=== PATIENT | female | born 1985 ===

== ENCOUNTER 2016-10-17 10:08 | Inpatient (IN) ==
[2016-10-17] MEDS ORDERED: MEPERIDINE 50 MG/1 ML VIAL IV PRN (10:28)
[2016-10-17] MEDS ORDERED: ONDANSETRON 4 MG/2 ML VIAL IV PRN (10:28)
[2016-10-17] MEDS ORDERED: AMPICILLIN INJ 2,000 MG in SODIUM CHLORIDE 0.9% 100 ML IV ONE (10:47)
[2016-10-17 10:51] LABS: Basophils % 0.1 % (0.0-0.8); Eosinophils # 0.2 10*3/uL (0.0-0.87); Hemoglobin 11.4 GM/DL (12.0-16.0); Immature Granulocytes % 0.5 %; Immature Granulocytes Absolute 0.05 #; Lymphocytes # 2.5 10*3/uL (1.4-4.0); Lymphocytes % 25.8 % (21.3-54.2); Mean Corpuscular HGB Conc 32.6 GM/DL (32-36); Mean Corpuscular Hemoglobin 25 PG (27-34); Mean Corpuscular Volume 77.6 FL (87-102); Mean Platelet Volume 11.2 FL (9.6-12.0); Monocytes # 0.5 10*3/uL (0.11-0.8); Monocytes % 5.1 % (1.7-12.7); Neutrophils # 6.5 10*3/uL (1.4-7.4); Neutrophils % 66.5 % (38.7-73.9); Platelet Count 202 T/CUMM (130-400); Red Blood Count 4.51 MC/CUMM (3.8-5.5); Red Cell Distribution Width 15.1 % (9.3-17.3); White Blood Count 9.7 T/CUMM (4-12)
[2016-10-17] MEDS ORDERED: OXYTOCIN/LR 20 UNIT/1,000 ML BAG IV SCH (11:00)
[2016-10-17] MEDS: LACTATED RINGERS 1,000 ML IV SCH ×2 (11:03→17:11)
[2016-10-17 11:31] LABS: Alanine Aminotransferase 15 U/L (13-56); Albumin 2.9 G/DL (3.4-5.0); Alkaline Phosphatase 224 U/L (45-117); Aspartate Amino Transferase 16 U/L (0-37); Bilirubin,Total < 0.39 MG/DL (0.2-1.0); Blood Urea Nitrogen 12 MG/DL (7-18); Calcium 9.2 MG/DL (8.5-10.1); Glucose 67 MG/DL (74-106); Osmolality,Calculated 274.5 MOS/KG (273-304); Potassium 4.2 MMOL/L (3.5-5.1); Sodium 139 MMOL/L (136-145); Total Protein 6.9 G/DL (6.4-8.3); Uric Acid 4.3 MG/DL (2.6-6.0)
[2016-10-17] MEDS: AMPICILLIN INJ 1,000 MG in SODIUM CHLORIDE 0.9% 100 ML IV SCH ×3 (15:30→23:00)
[2016-10-17] MEDS ORDERED: DINOPROSTONE VAG GEL 10 MG SYRINGE VAG ONE (16:45)
--- NOTE | 2016-10-17 18:05 | OB/GYN History & Physical ---
History of Present Illness Chief complaint: In for elective induction of labor History of present illness: Ms. Baig is a 31 year old female who is a 5 para 4 living for. Her BRAD is 10/22/2016 for an estimated gestational age of 39 weeks. The patient presents to the labor department for elective induction of labor due to term . The risk and benefits been thoroughly discussed with this patient and significant other and plan of care has been discussed with Dr. Gutierrez and all parties are in agreement plan. The patient received her care through the [facility] and the [facility]. She received routine care and her course was uneventful. The patient has had 4 previous vaginal deliveries and she reported no complications with any of her pregnancies. Other than her first where she had preeclampsia. Her largest weighing 8 pounds and 12 ounces. The patient also has a history of gestational diabetes with this which was controlled. labs : She is a positive, serologies nonreactive, rubella is immune, hepatitis B negative, HIV negative, GBS cultures are positive, review of systems is negative with exception of above. Home Medications Medication Instructions Recorded Confirmed Type Albuterol Inhaler [Proventil 2 puff INH Q6H #1 inhaler 01/03/16 10/17/16 Rx Inhaler] Folic Acid Tab 1 tablet PO DAILY 10/17/16 10/17/16 History Allergies Allergy/AdvReac Type Severity Reaction Status Date / Time Cantaloupe Allergy Intermediate Swelling Verified 10/17/16 10:28 of Lip/Tongue/Throat Honeydew Allergy Intermediate Swelling Verified 10/17/16 10:28 of Lip/Tongue/Throat avocado Allergy Verified 08/27/16 14:16 banana AdvReac Verified 08/27/16 14:16 12 point system: reviewed and no additional remarkable complaints except as stated Medical,Surgical,& Family Hx - Medical History Endocrine: History of: Diabetes Mellitus (NIDDM) Respiratory: History of: Asthma Musculoskeletal: History of: Back/Neck Problems No history of: Amputation Reproductive: History of: Complication (preeclampsia) No history of: Ectopic - Surgical History Cardiac Surgeries: Patient Denies: Cardiac Catheterization Reproductive Surgeries: Patient denies;: Section - Family History Family History: Reports;: Family Cancer (GRANDFATHER), Family Diabetes, Family Hypertension Denies;: Family Heart Disease, Family Psychiatric Problems, Family Stroke - Social History Smoking Status: Never smoker Frequency of Alcohol Use: None Type of Drug Use: None Marital Status: Single Lives With:: Significant Other Functional capacity: independent ambulation Exam UNDERGRADUATE ADVISOR - Constitutional Vitals: Vital Signs Temp Pulse Resp BP Pulse Ox 10/17/16 16:00 97.4 F L 77 20 129/69 10/17/16 12:00 98.0 F 71 20 140/66 10/17/16 10:29 97.1 F L 81 20 135/82 98 General appearance: no acute distress - Antepartum / Post Antepartum Exam Cervix -Dilatation: 4 cm Effacement: 50% Station: -2 Rupture: intact Presentation: vtx Heart Rate: 140s Breast: bilateral: normal Abdomen obstetrics: Present: bowel sounds normal Vagina: Present: normal moisture Uterus exam: Present: enlarged - Head Head exam: Present: normal inspection - Respiratory Respiratory exam: Present: clear to auscultation bilaterally - Cardiovascular Cardiovascular exam: Present: regular rate and rhythm - GI/Abdominal GI/Abdominal exam: Present: normal bowel sounds - Extremities Exam Extremities exam: Present: normal inspection - Neurological Exam Neurological exam: Present: alert, oriented X3 - Psychiatric Psychiatric exam: Present: normal affect, normal mood - Skin Skin exam: Present: normal color, warm Assessment and Plan (1) Term Status: Acute Assessment and plan: Admit IV fluids IV Pitocin per protocol Artificial rupture membranes when appropriate Epidural anesthesia if desired Anticipate Current Visit: Yes (2) Gestational diabetes mellitus Status: Acute Current Visit: No Results - Labs CBC & BMP: 10/17/16 10:45 10/17/16 10:45
--- NOTE | 2016-10-17 18:10 | Event Note ---
The patient has not made any significant changes from this a.m. around 1130 at 12 when the Pitocin was started, therefore the decision to Place Prostin gel was made Dr. Gutierrez was consulted regarding this decision and all parties were in agreement plan. The patient did receive the Prostin she is still approximately 4 cm dilated and about 50% effaced. Will start IV Pitocin at 3 AM if no significant changes are made. The patient was counseled on epidural and measures for pain control.
[2016-10-17] MEDS ORDERED: PROMETHAZINE 25 MG/1 ML VIAL IM ONE (18:48)
[2016-10-17] MEDS ORDERED: CITRIC ACID/SODIUM CITRATE 30 ML UDCUP PO ONE (18:48)
[2016-10-17] MEDS ORDERED: fentaNYL 2 MCG/ROPIV 0.2% EPID 150 ML EPIDURAL SCH (18:48)
[2016-10-17] MEDS ORDERED: diphenhydrAMINE 50 MG/1 ML VIAL IV PRN ×2 (18:48)
[2016-10-17] MEDS ORDERED: ePHEDrine 50 MG/ML AMP IV PRN (18:48)
[2016-10-17] MEDS ORDERED: LACTATED RINGERS 1,000 ML IV ONE (18:48)
[2016-10-17] MEDS ORDERED: ONDANSETRON 4 MG/2 ML VIAL IV ONE (18:48)
[2016-10-17] MEDS ORDERED: hydrOXYzine HCL 25 MG/1 ML VIAL IM PRN (18:48)
[2016-10-17] MEDS ORDERED: FAMOTIDINE 20 MG/2 ML VIAL IV ONE (18:48)
[2016-10-17] MEDS ORDERED: ePHEDrine 50 MG/ML AMP ONE (19:17)
[2016-10-18] MEDS: LACTATED RINGERS 1,000 ML IV SCH (00:41)
[2016-10-18 00:50] LABS: Apearance,Urine CLEAR (Clear); Bilirubin,Urine Negative (Negative); Blood, Urine Negative (Negative); Glucose,Urine (UA) Negative (Negative); Ketones,Urine Negative (Negative); Mucus,Urine Occasional /LPF (Occasional); Nitrite,Urine Negative (Negative); Protein,Urine Negative; RBC,Urine <1 /HPF (0-4); Urine Color Yellow (Yellow); Urine Specific Gravity 1.016 (1.001-1.035); Urine Urobilinogen < 2.0 EU/DL (0.2-1.0); WBC,Urine <1 /HPF (0-6)
[2016-10-18] MEDS ORDERED: OXYTOCIN/LR 30 UNIT/1,000 ML BAG IV ONE (02:50)
[2016-10-18] MEDS: AMPICILLIN INJ 1,000 MG in SODIUM CHLORIDE 0.9% 100 ML IV SCH (02:51)
[2016-10-18] MEDS ORDERED: OXYTOCIN/LR 20 UNIT/1,000 ML BAG IV SCH (03:00)
[2016-10-18] MEDS ORDERED: miSOPROStol 200 MCG TABLET ONE (03:35)
[2016-10-18] MEDS ORDERED: METHYLERGONOVINE 0.2 MG/1 ML AMP ONE (03:35)
[2016-10-18] MEDS ORDERED: LIDOCAINE 1% 50 ML VIAL ONE (03:35)
[2016-10-18] MEDS: ACETAMINOPHEN/CODEINE 300-30 MG TABLET PO PRN (11:56)
[2016-10-18] MEDS: IBUPROFEN 800 MG TABLET PO PRN (11:56)
--- NOTE | 2016-10-18 15:38 | Anesthesia Post-Op ---
Anesthesia Post OP - Post Ansesthetic Evaluation Patient seen in post op: Yes Resp: within normal limits CV: within normal limits Mental: within normal limits Temp: within normal limits [id number]: within normal limits Nausea and Vomiting: within normal limits Pain: within normal limits
[2016-10-18] MEDS: DOCUSATE SODIUM 100 MG CAPSULE PO SCH (20:20)
[2016-10-19 05:57] LABS: Basophils % 0.2 % (0.0-0.8); Eosinophils # 0.3 10*3/uL (0.0-0.87); Eosinophils % 3.1 % (0.00-10.9); Hematocrit 28.2 VOL% (35.7-47.0); Immature Granulocytes % 0.6 %; Immature Granulocytes Absolute 0.05 #; Lymphocytes # 2.7 10*3/uL (1.4-4.0); Lymphocytes % 31.3 % (21.3-54.2); Mean Corpuscular HGB Conc 31.9 GM/DL (32-36); Mean Corpuscular Hemoglobin 25 PG (27-34); Mean Corpuscular Volume 77.5 FL (87-102); Mean Platelet Volume 12.2 FL (9.6-12.0); Monocytes # 0.5 10*3/uL (0.11-0.8); Monocytes % 5.7 % (1.7-12.7); Neutrophils # 5.1 10*3/uL (1.4-7.4); Neutrophils % 59.1 % (38.7-73.9); Platelet Count 162 T/CUMM (130-400); Red Blood Count 3.64 MC/CUMM (3.8-5.5); Red Cell Distribution Width 15.4 % (9.3-17.3); White Blood Count 8.7 T/CUMM (4-12)
--- NOTE | 2016-10-19 08:49 | Progress Note ---
Family Medicine PN Sub Interval history: Postop day #1 Status post vaginal Subjectively, patient is doing well no shortness of breath chest pain or excessive vaginal bleeding Uterus is firm and nontender Extremities well with no limits neurologic grossly intact Assessment and plan Possible discharge in a.m. Anemic will start this patient on iron therapy Follow-up in our office approximately 6 weeks. Exam (Progress Note) - Constitutional Vitals: Period Temp Pulse Resp BP Sys/Zamorano Pulse Ox Last 24 Hr 96.9 F-98.0 F 73-85 18-20 114-134/62-76 94-98 Results - Labs CBC & BMP: 10/19/16 05:46 10/17/16 10:45
[2016-10-19] MEDS: DOCUSATE SODIUM 100 MG CAPSULE PO SCH ×2 (09:30→20:05)
[2016-10-19] MEDS: MULTIVITAMIN (PRENATAL) TABLET PO SCH (09:30)
[2016-10-19] MEDS: IBUPROFEN 800 MG TABLET PO PRN (20:05)
[2016-10-19] MEDS: ACETAMINOPHEN/CODEINE 300-30 MG TABLET PO PRN (20:05)
[2016-10-20] MEDS ORDERED: FERROUS SULFATE 325 MG TABLET PO SCH (09:00)
[2016-10-20] MEDS: DOCUSATE SODIUM 100 MG CAPSULE PO SCH (09:30)
[2016-10-20] MEDS: MULTIVITAMIN (PRENATAL) TABLET PO SCH (09:30)
[2016-10-20] MEDS ORDERED: DIPH/TET/ACEL PERT BOOSTER VACCINE 0.5 ML VIAL IM ONE (12:05)
--- NOTE | 2016-10-20 12:07 | Discharge Summary ---
Hospital Course - Hospital Course Hospital Course: Ms. Baig presented to the labor department for elective induction of labor due to term . She subsequently delivered a viable infant with no complications. She has followed a normal course and she has done well. Her bleeding is minimal with no odor. Her fundus is firm and midline. She is bonding well with her . Her vital signs and lab values are stable. Her perineum is intact with no edema. She will be discharged home prescriptions for pain and follow-up appointment in our office. Diagnosis - Discharge Diagnosis (1) Term Status: Acute (2) Gestational diabetes mellitus Status: Acute Specialty Discharge - Follow Up or Referrals Follow up with: Louann Gutierrez MD [Physician] - 11/22/16 2:30 pm Discharge Plan - Discharge Data Disposition: Disch To Home/Self Care Condition at Discharge: Stable Discharge Diet: advance to your usual diet, regular diet Activity: resume usual activities as tolerated Hygiene: no restrictions, may shower Weight Bearing at Discharge: weight bear as tolerated Driving: no restrictions Contact your physician if you experience:: fever over 101, pain uncontrolled by pain medications - Discharge Medications New Ibuprofen Tab [Motrin Tab] 800 mg PO Q8H PRN #30 tablet PRN Reason: Pain Mild (1-3) And/Or Fever Acetamin/Codeine 300-30 Tab [Tylenol/Codeine #3] 2 tablet PO Q4H PRN #30 tablet PRN Reason: Pain Mild (1-3) Ferrous Sulfate Tab [Feosol Original Tab] 325 mg PO BID #60 tablet No Action Albuterol Inhaler [Proventil Inhaler] 2 puff INH Q6H #1 inhaler Folic Acid Tab 1 tablet PO DAILY - Follow Up or Referral Follow Up: Louann Gutierrez MD [Physician] - 11/22/16 2:30 pm - Forms/Instructions Instructions: Depression (GEN), Perineal Care (DC), Bleeding (DC) Exam - Constitutional Vitals: Period Temp Pulse Resp BP Sys/Zamorano Pulse Ox Last 24 Hr 97.0 F-97.8 F 74-82 16-20 107-139/61-72 95-98 General appearance: no acute distress - Head Head exam: Present: normal inspection - Respiratory Respiratory exam: Present: clear to auscultation bilaterally - Cardiovascular Cardiovascular exam: Present: regular rate and rhythm - GI/Abdominal GI/Abdominal exam: Present: normal bowel sounds, soft - Extremities Exam Extremities exam: Present: normal inspection - Neurological Exam Neurological exam: Present: alert, oriented X3 - Psychiatric Psychiatric exam: Present: normal affect, normal mood - Skin Skin exam: Present: normal color, warm DS: Provider Date of admission: 10/17/16 10:08 Primary care physician: Haris Lozano MD Attending physician on admission: Louann Gutierrez MD Consults: 10/17/16 10:28 Consult to Anesthesiology [CONS] Routine Consulting Provider: Reason for Anesthesiology: Epidural Consult Comment: Epidural for pain managment 10/19/16 08:00 Consult to Dietitian [CONS] Routine Reason for Dietitian: Dietary Consult Discharging clinician: Lissa Roberts CNM Expected date of discharge: 10/20/16
[2016-10-20 12:08] VITALS: BP 140/87
--- NOTE | 2016-11-18 22:43 | Operative Note ---
This patient was admitted on 10/17/16, subsequently amniotic membranes on 10/18/16. She delivered a viable with an epidural, 7 pounds and 1 ounce. Her labor progress was with an IV, with an epi dural, with IV Pitocin. Her monitor strip demonstrated category I. She had a normal labor cou rse for the first stage was 7 hours and 47 minutes, second stage was 25 minutes without any complicat ions. This patient's blood loss was less than 300 mL. She tolerated the delivery well. Brandon cri ed immediately and was taken to nursery in stable condition.
== END 2016-10-20 13:15 | disposition home or self-care (01) | DRG 560 ==
LOC: N.LD 10:08 → N.OB 10-18 08:54
PROVIDERS: ADMIT Obstetrics & Gynecology; ATTEND Obstetrics & Gynecology

== ENCOUNTER 2018-05-30 18:39 | Inpatient (IN) ==
[2018-05-30] MEDS ORDERED: LACTATED RINGERS 1,000 ML IV ONE (19:57)
[2018-05-30] MEDS ORDERED: ONDANSETRON 4 MG/2 ML VIAL IV ONE (19:58)
[2018-05-30] MEDS ORDERED: MEPERIDINE 50 MG/1 ML VIAL IV ONE (19:58)
[2018-05-30] MEDS: LACTATED RINGERS 1,000 ML IV SCH (21:21)
[2018-05-30 23:46] LABS: Apearance,Urine CLEAR (Clear); Bacteria,Urine Occasional /HPF (Few); Bilirubin,Urine Negative (Negative); Blood, Urine Small mg/dL (Negative); Glucose,Urine (UA) Negative (Negative); Ketones,Urine 20 mg/dL (Negative); Mucus,Urine Occasional /LPF (Occasional); Nitrite,Urine Negative (Negative); Protein,Urine Negative; RBC,Urine <1 /HPF (0-4); Squamous Epithelial Cell,Urine Occasional /HPF (0-10); Urine Color Yellow (Yellow); Urine Specific Gravity 1.021 (1.001-1.035); WBC,Urine 1 /HPF (0-6)
[2018-05-31] MEDS ORDERED: LACTATED RINGERS 500 ML IV PRN (07:26)
[2018-05-31] MEDS ORDERED: BUTORPHANOL 2 MG/ML VIAL IV PRN (07:26)
[2018-05-31] MEDS ORDERED: MEPERIDINE 50 MG/1 ML VIAL IV PRN (07:26)
[2018-05-31] MEDS ORDERED: OXYTOCIN/LR 20 UNIT/1,000 ML BAG IV SCH (07:30)
[2018-05-31 07:57] LABS: Basophils % 0.1 % (0.0-0.8); Eosinophils # 0.2 10*3/uL (0.0-0.87); Eosinophils % 1.9 % (0.00-10.9); Hematocrit 33.9 VOL% (35.7-47.0); Hemoglobin 10.7 GM/DL (12.0-16.0); Immature Granulocytes % 0.6 %; Immature Granulocytes Absolute 0.05 #; Lymphocytes # 1.9 10*3/uL (1.4-4.0); Lymphocytes % 20.6 % (21.3-54.2); Mean Corpuscular HGB Conc 31.6 GM/DL (32-36); Mean Corpuscular Hemoglobin 25 PG (27-34); Mean Corpuscular Volume 80.3 FL (87-102); Mean Platelet Volume 11.9 FL (9.6-12.0); Monocytes # 0.4 10*3/uL (0.11-0.8); Monocytes % 4.2 % (1.7-12.7); Neutrophils # 6.6 10*3/uL (1.4-7.4); Neutrophils % 72.6 % (38.7-73.9); Platelet Count 218 T/CUMM (130-400); Red Blood Count 4.22 MC/CUMM (3.8-5.5); Red Cell Distribution Width 15.7 % (9.3-17.3); White Blood Count 9.1 T/CUMM (4-12)
[2018-05-31] MEDS ORDERED: AMPICILLIN INJ 2,000 MG in SODIUM CHLORIDE 0.9% 100 ML IV ONE (08:01)
[2018-05-31] MEDS ORDERED: PROMETHAZINE 25 MG/1 ML VIAL IM ONE (08:28)
[2018-05-31] MEDS ORDERED: NALOXONE 0.4 MG/ML VIAL IV PRN (08:28)
[2018-05-31] MEDS ORDERED: ePHEDrine 50 MG/ML AMP IV PRN (08:28)
[2018-05-31] MEDS ORDERED: diphenhydrAMINE 50 MG/1 ML VIAL IV PRN (08:28)
[2018-05-31] MEDS ORDERED: CITRIC ACID/SODIUM CITRATE 30 ML UDCUP PO ONE (08:28)
[2018-05-31] MEDS ORDERED: FAMOTIDINE 20 MG/2 ML VIAL IV ONE (08:28)
[2018-05-31] MEDS ORDERED: hydrOXYzine HCL 25 MG/1 ML VIAL IM PRN (08:28)
[2018-05-31] MEDS ORDERED: fentaNYL 2 MCG/ROPIV 0.2% EPID 100 ML EPIDURAL SCH (08:30)
[2018-05-31 08:35] LABS: Albumin 2.3 G/DL (3.4-5.0); Bilirubin,Total 0.4 MG/DL (0.2-1.0); Calcium 9.2 MG/DL (8.5-10.1); Osmolality,Calculated 268.8 MOS/KG (273-304); Potassium 3.9 MMOL/L (3.5-5.1); Uric Acid 4.5 MG/DL (2.6-6.0)
[2018-05-31] MEDS: LACTATED RINGERS 1,000 ML IV SCH (10:09)
[2018-05-31] MEDS ORDERED: METHYLERGONOVINE 0.2 MG/1 ML AMP ONE (11:48)
[2018-05-31] MEDS ORDERED: TRANEXAMIC ACID 1,000 MG/10 ML VIAL ONE (11:48)
[2018-05-31] MEDS ORDERED: OXYTOCIN/LR 20 UNIT/1,000 ML BAG IV ONE ×2 (11:48→15:11)
[2018-05-31] MEDS ORDERED: miSOPROStol 200 MCG TABLET ONE (11:48)
[2018-05-31] MEDS ORDERED: CARBOPROST TROMETHAMINE 250 MCG/ML AMP IM ONE (11:48)
[2018-05-31 12:38] LABS: Cord Venous Blood HCO3 22.4 MMOL/L; Cord Venous Blood PCO2 40.9 MMHG; Cord Venous Blood PO2 38.4
[2018-05-31] MEDS ORDERED: ACETAMINOPHEN 325 MG TABLET PO PRN (15:02)
[2018-05-31] MEDS ORDERED: HYDROCORTISONE 2.5% RECTAL CREAM 30 GM TUBE TOP PRN (15:02)
[2018-05-31] MEDS ORDERED: LANOLIN 50% CREAM 0.3 OZ TUBE TOP PRN (15:02)
[2018-05-31] MEDS ORDERED: ACETAMINOPHEN/CODEINE 300-30 MG TABLET PO PRN (15:02)
[2018-05-31] MEDS ORDERED: WITCH HAZEL PADS 100/JAR TOP PRN (15:02)
[2018-05-31] MEDS ORDERED: BENZOCAINE 20%/MENTHOL 0.5% SPRAY 56 GM CAN TOP PRN (15:02)
[2018-05-31] MEDS ORDERED: oxyCODONE/ACETAMINOPHEN 5-325 MG TABLET PO PRN ×2 (15:02)
[2018-05-31] MEDS ORDERED: BISACODYL 10 MG SUPP RECTAL PRN (15:02)
[2018-05-31] MEDS ORDERED: DIPH/TET/ACEL PERT BOOSTER VACCINE 0.5 ML VIAL IM ONE (15:30)
[2018-05-31] MEDS ORDERED: RHO(D) IMMUNE GLOBULIN 300 MCG SYRINGE IM ONE (15:30)
[2018-05-31] MEDS ORDERED: MEASLES/MUMPS/RUBELLA VACCINE 0.5 ML VIAL SUBCUT ONE (15:30)
[2018-05-31] MEDS: DOCUSATE SODIUM 100 MG CAPSULE PO SCH (20:25)
[2018-06-01] MEDS: IBUPROFEN 800 MG TABLET PO PRN (01:45)
[2018-06-01 04:08] LABS: Basophils % 0.2 % (0.0-0.8); Eosinophils # 0.2 10*3/uL (0.0-0.87); Eosinophils % 2.6 % (0.00-10.9); Hematocrit 29.4 VOL% (35.7-47.0); Hemoglobin 9.2 GM/DL (12.0-16.0); Immature Granulocytes % 0.5 %; Immature Granulocytes Absolute 0.05 #; Lymphocytes # 2.6 10*3/uL (1.4-4.0); Lymphocytes % 28.5 % (21.3-54.2); Mean Corpuscular HGB Conc 31.3 GM/DL (32-36); Mean Corpuscular Hemoglobin 25 PG (27-34); Mean Corpuscular Volume 80.1 FL (87-102); Mean Platelet Volume 11.9 FL (9.6-12.0); Monocytes # 0.5 10*3/uL (0.11-0.8); Monocytes % 5.7 % (1.7-12.7); Neutrophils # 5.8 10*3/uL (1.4-7.4); Neutrophils % 62.5 % (38.7-73.9); Platelet Count 207 T/CUMM (130-400); Red Blood Count 3.67 MC/CUMM (3.8-5.5); Red Cell Distribution Width 15.5 % (9.3-17.3); White Blood Count 9.2 T/CUMM (4-12)
[2018-06-01] MEDS: DOCUSATE SODIUM 100 MG CAPSULE PO SCH ×2 (09:30→21:02)
[2018-06-01] MEDS: FERROUS SULFATE 325 MG TABLET PO SCH ×2 (09:30→21:02)
[2018-06-02] MEDS: IBUPROFEN 800 MG TABLET PO PRN (03:15)
[2018-06-02] MEDS: FERROUS SULFATE 325 MG TABLET PO SCH (09:26)
[2018-06-02] MEDS: DOCUSATE SODIUM 100 MG CAPSULE PO SCH (09:26)
[2018-06-02 11:59] VITALS: BP 131/83
[2018-06-02] MEDS ORDERED: INFLUENZA VIRUS VACCINE 0.5 ML SYRINGE IM ONE (13:12)
== END 2018-06-02 14:20 | disposition home or self-care (01) | DRG 560 ==
LOC: N.LAB 18:39 → N.LD 18:40 → N.OB 05-31 14:55
PROVIDERS: ADMIT Obstetrics & Gynecology; ATTEND Obstetrics & Gynecology

== ENCOUNTER 2019-03-15 23:04 | Inpatient (IN) ==
[2019-03-15] MEDS ORDERED: HYDROmorphone 2 MG/1 ML VIAL IV STA (23:11)
[2019-03-15] MEDS ORDERED: ONDANSETRON 4 MG/2 ML VIAL IV STA (23:11)
[2019-03-15] MEDS ORDERED: KETOROLAC 30 MG/1 ML VIAL IV STA (23:13)
[2019-03-16] MEDS ORDERED: ACETAMINOPHEN 325 MG TABLET PO PRN (00:23)
[2019-03-16] MEDS ORDERED: HYDROmorphone 2 MG/1 ML VIAL IV PRN (00:23)
[2019-03-16] MEDS ORDERED: PROMETHAZINE 25 MG/1 ML VIAL IM PRN (00:23)
[2019-03-16] MEDS ORDERED: ONDANSETRON 4 MG/2 ML VIAL IV PRN (00:23)
[2019-03-16] MEDS: LACTATED RINGERS 1,000 ML IV SCH ×2 (01:00→10:03)
[2019-03-16] MEDS: KETOROLAC 30 MG/1 ML VIAL IV SCH ×5 (01:30→23:58)
[2019-03-16 05:49] LABS: Basophils % 0.3 % (0.0-0.8); Eosinophils # 0.4 10*3/uL (0.0-0.87); Eosinophils % 5.6 % (0.00-10.9); Hemoglobin 13.4 GM/DL (12.0-16.0); Immature Granulocytes % 0.3 %; Immature Granulocytes Absolute 0.02 #; Lymphocytes # 2.7 10*3/uL (1.4-4.0); Lymphocytes % 33.8 % (21.3-54.2); Mean Corpuscular HGB Conc 31.9 GM/DL (32-36); Mean Corpuscular Volume 84.5 FL (87-102); Mean Platelet Volume 10.1 FL (9.6-12.0); Monocytes % 5.6 % (1.7-12.7); Neutrophils % 54.4 % (38.7-73.9); Platelet Count 237 T/CUMM (130-400); Red Blood Count 4.97 MC/CUMM (3.8-5.5); Red Cell Distribution Width 14.6 % (9.3-17.3); White Blood Count 7.9 T/CUMM (4-12)
[2019-03-16 06:04] LABS: Calcium 9.2 MG/DL (8.5-10.1)
[2019-03-16] MEDS: PANTOPRAZOLE 40 MG TABLET PO SCH (08:04)
[2019-03-16] MEDS: MOMETASONE/FORMOTEROL 100-5 INHALER 8.8 GM INH SCH ×2 (10:04→20:31)
[2019-03-16] MEDS: ENOXAPARIN 40 MG/0.4 ML SYRINGE SUBCUT SCH (18:07)
[2019-03-17] MEDS: LACTATED RINGERS 1,000 ML IV SCH ×5 (01:35→17:31)
[2019-03-17] MEDS: KETOROLAC 30 MG/1 ML VIAL IV SCH ×4 (06:07→23:52)
[2019-03-17] MEDS: MOMETASONE/FORMOTEROL 100-5 INHALER 8.8 GM INH SCH ×2 (08:44→21:40)
[2019-03-17] MEDS: PANTOPRAZOLE 40 MG TABLET PO SCH (08:44)
[2019-03-17] MEDS: ENOXAPARIN 40 MG/0.4 ML SYRINGE SUBCUT SCH (17:06)
[2019-03-18] MEDS: LACTATED RINGERS 1,000 ML IV SCH ×2 (01:38→13:07)
[2019-03-18] MEDS ORDERED: TISSUE ADHESIVE 1 EACH APPLICATOR TOP ONE (06:04)
[2019-03-18] MEDS ORDERED: LIDOCAINE 1%/EPI INJ 20 ML VIAL ONE (06:04)
[2019-03-18] MEDS ORDERED: BUPIVACAINE MPF 0.25% 30 ML VIAL ONE (06:04)
[2019-03-18] MEDS: KETOROLAC 30 MG/1 ML VIAL IV SCH ×2 (06:32→13:06)
[2019-03-18] MEDS ORDERED: ALBUTEROL/IPRATROPIUM 3 ML NEB RESP TX ONE (06:48)
[2019-03-18] MEDS ORDERED: ceFAZolin 2,000 MG in PREMIX 1 EACH IV ONE (07:00)
[2019-03-18] MEDS ORDERED: fentaNYL 100 MCG/2 ML VIAL ONE (09:41)
[2019-03-18] MEDS ORDERED: PROPOFOL 200 MG/20 ML VIAL IV ONE (09:41)
[2019-03-18] MEDS ORDERED: SEVOFLURANE 1 UNIT/15 MINUTE INH ONE (09:41)
[2019-03-18] MEDS ORDERED: LIDOCAINE 2% 5 ML VIAL ONE (09:41)
[2019-03-18] MEDS ORDERED: GLYCOPYRROLATE 0.4 MG/2 ML VIAL ONE (09:42)
[2019-03-18] MEDS ORDERED: ROCURONIUM 100 MG/10 ML VIAL IV ONE (09:42)
[2019-03-18] MEDS ORDERED: ONDANSETRON 4 MG/2 ML VIAL ONE (09:42)
[2019-03-18] MEDS ORDERED: LACTATED RINGERS 1,000 ML IV ONE (09:42)
[2019-03-18] MEDS ORDERED: DEXAMETHASONE 4 MG/1 ML VIAL ONE (09:42)
[2019-03-18] MEDS ORDERED: SUCCINYLCHOLINE 200 MG/10 ML VIAL ONE (09:42)
[2019-03-18] MEDS ORDERED: ACETAMINOPHEN 1,000 MG/100 ML VIAL IV ONE (09:42)
[2019-03-18] MEDS ORDERED: MIDAZOLAM 2 MG/2 ML VIAL ONE ×2 (09:42)
[2019-03-18] MEDS ORDERED: NEOSTIGMINE 10 MG/10 ML VIAL ONE (09:42)
[2019-03-18] MEDS ORDERED: ONDANSETRON 4 MG/2 ML VIAL IV PRN (09:49)
[2019-03-18] MEDS: HYDROmorphone 2 MG/1 ML VIAL IV PRN ×4 (09:54→10:29)
[2019-03-18] MEDS: PANTOPRAZOLE 40 MG TABLET PO SCH (10:39)
[2019-03-18] MEDS: MOMETASONE/FORMOTEROL 100-5 INHALER 8.8 GM INH SCH (10:39)
[2019-03-18 12:49] VITALS: BP 148/91
== END 2019-03-18 15:28 | disposition home or self-care (01) | DRG 354 ==
LOC: EDBD → EDUNIT# → N.ED 23:04 → N.EDINP 23:11 → N.3E 23:57
PROVIDERS: ADMIT Surgery; ATTEND Surgery